=== PATIENT | male | born 1980 | race African-American/Black ===

== ENCOUNTER 2021-06-10 14:44 | Emergency (ER) | payer SELFPAY ==
[2021-06-10 14:48] VITALS: BP 132/90; PULSE 114; RESP 18; TEMP 36.1; O2SAT 98; BMI 23.3
--- NOTE | 2021-06-10 15:56 | ED_ITS ---
HPI - Skin/Abscess/Foreign Bdy General Chief complaint: Skin/Abscess/Foreign Body Stated complaint: dental pain Time Seen by Provider: 06/10/21 15:34 Source: patient Mode of arrival: ambulatory Limitations: no limitations History of Present Illness HPI narrative: 41-year-old male to the emergency department with right-side lower gum pain X2 days. He states that he thinks he has an abscessed. He states he recently broke a tooth and he feels like this is what is causing the infection. He reports constant 10/10 pain. He states he has not seen a dentist since he was a child. He denies fevers, chills, shortness of breath, chest pain, abdominal pain, trouble swallowing, sore throat. MD complaint: abscess/boil (Right lower gum) Onset (ago): day(s) (2) Severity: severe Severity scale (1-10): 10 Quality: sharp Pain Consistency: constant Relieving factors: none Exacerbating factors: none Context: none Associated symptoms: denies other symptoms Treatments prior to arrival: none Related Data Previous Rx's Medication Instructions Recorded hydrocodone 5 mg-acetaminophen 325 1 tab PO Q8H PRN #14 tab 06/10/21 mg tablet penicillin V potassium 500 mg 500 mg PO Q12H 10 Days #20 tab 06/10/21 tablet Allergies Allergy/AdvReac Type Severity Reaction Status Date / Time oxycodone AdvReac Intermediate skin rash Unverified 06/10/21 15:58 Review of Systems Review of Systems: Constitutional : No Fever, No Chills, No changes in PO intake, No difficulty speaking, no recent dental procedure, no heat or cold intolerance while eating, no recent face trauma, ENT/Mouth : + dental pain/gum swelling, No swallowing difficulty, no change in voice, No jaw pain, No facial swelling, no drooling, no trismus, no bleeding, no throat swelling, no lacerations, no tongue swelling Eyes: No Eye Pain, No periorbital Swelling Cardiovascular : No Chest Pain, No SOB Respiratory : No Cough, No Sputum, No Wheezing, No Smoke Exposure, No Dyspnea Gastrointestinal : No Nausea, No Vomiting, No Diarrhea Genitourinary : No Dysuria Musculoskeletal : No Myalgias Skin : No rash, no facial swelling or redness, Neuro : No Weakness, No Numbness, No Headache Yes all other systems are reviewed and are negative [facility] Past Medical History Attestation statement: The following information was validated with the patient. Source: old records reviewed and nursing notes reviewed Social History Social History Advance Directives: No Advance Directives Information Provided: Yes Physical Exam Vital Signs: Vital Signs: Last Vital Signs Temp 97 F 06/10/21 14:48 Pulse 114 H 06/10/21 14:48 Resp 18 06/10/21 14:48 BP 132/90 H 06/10/21 14:48 Pulse Ox 98 06/10/21 14:48 Body Mass Index 23.3 vital signs have been reviewed as normal and appeared to be correct. Blood pressure hypertensive at 132/90 Heart rate tachycardic at 114 Respiration rate normal. Temperature normal. Oxygen saturation normal. Appearance: Alert. Oriented X3. No acute distress. Head: Normal external exam. Normocephalic. Eyes: PERRLA. EOMI. Conjunctiva and sclera normal. Eyelids normal. ENT: Pharynx normal. Uvula midline. Moist mucous membranes. No trismus noted. No drooling noted. No muffled voice noted. + flutuance abscess small 2cmX 2cm area to right lower gum., + poor dentition noted throughout and multiple dental old fractures Neck: Normal inspection. Neck supple. FROM. No adenopathy. No meningeal signs. CVS: Normal heart rate and rhythm. Heart sound normal. No murmurs noted. Pulses normal throughout. Respiratory: No respiratory distress. Painless inspiration. Breath sounds normal. No wheezes/rales/rhonchi noted. Abdomen: Soft and nontender. Nondistended. No guarding. No rigidity. Bowel sounds normal in all 4 quadrants. Back: No CVA tenderness. Full range of motion noted. Skin: Skin warm and dry. Normal skin color. Normal skin turgor. No rashes/lesions/lacerations noted. Extremities: Extremities exhibit normal range of motion. Extremities nontender. Neuro: Oriented X 3. No motor deficit. No sensory deficit. Reflexes normal. Normal steady gait. Course Course Course Narrative: 41-year-old male, no known medical history presents to the emergency department with right lower gum pain x2 days. He states that he broke a choose a while ago, and he feels like that tooth is getting infected and caus ing an infection. He states he has not seen a dentist since he was a child. Upon physical examination there is a small 2 x 2 abscess noted to the right lower gum. There is poor dentition noted throughout. Patient is controlling secretions well. Patient is speaking in full sentences. An 18 gauge needle was used to needle aspirate, and 3 different locations. Pus was expressed from the area. At this time there is no need for laboratory studies. Patient appears nontoxic, he is afebrile and vital signs are stable. He is slightly tachycardic, however he states he is very nervous. Patient is safe for discharge home. He has been given a list of dentists in the area, he should follow up with a dentist, or his primary care provider. He will be discharged home on antibiotics and medication for pain. MDM - Skin/Abscess/Foreign Bdy Medical Records Attestation: I reviewed the patient's medical records. Procedures Abscess I/D Site: oral (dental right lower) Technique: needle aspiration Amount of fluid expressed (mL): 5 Sent for culture/gram staining?: No Irrigation: Yes Packing used?: none Complications: other (no complications) Discharge Plan Discharge Clinical Impression: Abscess, Pain due to dental caries Patient Disposition: Home, Self-Care Instructions: Abscess (ED) Additional Instructions: Follow-up with a dentist, we have given you last. Follow-up with your primary care provider Return to the emergency department with new or worsening symptoms, or if he develops severe pain, swelling, fevers or chills. Prescriptions: New penicillin V potassium 500 mg tablet 500 mg PO Q12H 10 Days Qty: 20 RF: 0 hydrocodone-acetaminophen 5-325 mg tablet 1 tab PO Q8H PRN (Reason: pain) Qty: 14 RF: 0 Referrals: Physician,None [Primary Care Provider] - 2 days (your pcp/dentist) Interventions: ED Discharge Assessment Last Done: 06/10/21 16:44 Discharge Date/Time: 06/10/21 16:46 Print Language: Luxem[place]ish
[2021-06-10] MEDS: HYDROcodone Bit/Acetam 5/325 TABLET 1 TAB PO (16:38)
--- NOTE | 2021-06-10 16:41 | PC.NURSE ---
PT EVALUATED BY DEMETRI SCHMITT. PT AWAKE, ALERT AND ORIENTED X 3. SKIN WARM AND DRY. RESP UNLABORED. DENIES N/V. C/O 10/10 DENTAL PAIN. AIRWAY PATENT. MANAGING SECRETIONS. SPEAKING IN FULL CLEAR SENTENCES. PA DRAINED ABSCESS - NEEDLE ASPIRATION. THICK YELLOW/GREEN PUS NOTED. PT TOLERATED PROCEDURE WITHOUT INCIDENT. PT MEDICATED FOR PAIN. PLAN IS FOR F/U WITH DENTIST. PT AWARE AND AGREEABLE TO PLAN.
== END 2021-06-10 16:46 | disposition home or self-care (01) ==
PROVIDERS: Emergency Provider Emergency Medicine
DX: K04.7 Periapical abscess without sinus (principal); K02.9 Dental caries, unspecified
CPT/HCPCS: 10160; 99283

== ENCOUNTER 2021-06-19 11:36 | Emergency (ER) | payer SELFPAY ==
[2021-06-19 11:46] VITALS: BP 167/99; PULSE 103; RESP 18; TEMP 36.9; O2SAT 100; BMI 23.3
--- NOTE | 2021-06-19 13:20 | ED.DENTAL ---
HPI - Dental/Oral General Chief complaint: Dental/Oral Stated complaint: Abscess got bigger Time Seen by Provider: 06/19/21 12:40 Source: patient Mode of arrival: ambulatory Limitations: no limitations History of Present Illness HPI Narrative: 41-year-old male presenting to the ER with right lower dental pain and swelling for the last 2 weeks. He was here on June 10 and had a dental abscess drained. He was prescribed pain medication and penicillin. He never followed up with a dentist as he is from [place]. He reports he felt like the infection went from the back tooth into the front molar. He has had increased swelling and pain over the last 2-3 days. He noticed a large protrusion of his gums. He reports some body aches and joint pains as well as overall not feeling well. He denies any fever or chills. MD Complaint: tooth pain Teeth map: 1. Pain with significant associated gingival swelling and fluctuance. Onset (ago): week(s) (2) Duration: constant Severity: severe Severity scale (1-10): >10 Relieving factors: prescription analgesics Exacerbating factors: chewing, cold and heat Context: other (Recently drained abscess) Associated symptoms: gum swelling Treatment prior to arrival: topical analgesic and oral analgesic Related Data Previous Rx's Medication Instructions Recorded hydrocodone 5 mg-acetaminophen 325 1 tab PO Q8H PRN #14 tab 06/10/21 mg tablet penicillin V potassium 500 mg 500 mg PO Q12H 10 Days #20 tab 06/10/21 tablet chlorhexidine gluconate 0.12 % 15 ml BUCCAL BID #118 ml 06/19/21 mouthwash clindamycin HCl 150 mg capsule 450 mg PO TID 10 Days #90 cap 06/19/21 hydrocodone 5 mg-acetaminophen 325 1 tab PO Q4H PRN #14 tab 06/19/21 mg tablet ibuprofen 800 mg tablet 800 mg PO Q8H PRN #20 tab 06/19/21 Allergies Allergy/AdvReac Type Severity Reaction Status Date / Time oxycodone AdvReac Intermediate skin rash Verified 06/19/21 11:46 Review of Systems Constitutional: Constitutional: Reports body ache(s), Denies chills, Denies fever(s) and Reports headache(s) Eyes: Eyes: Reports no additional eye complaints ENT: Reports dental pain, Reports facial pain, Reports headache(s), Reports mouth pain, Denies neck pain, Denies sore throat, Denies throat swelling and Denies tongue swelling Cardiovascular: Cardiovascular: Denies chest pain and Denies dyspnea Respiratory: Respiratory: Denies cough and Denies dyspnea Gastrointestinal: Gastrointestinal: Denies nausea and Denies vomiting Musculoskeletal: Musculoskeletal: Reports myalgias and Denies neck pain Neurologic: Reports headache(s) Hematologic/Lymphatic: Hematologic/Lymphatic: Denies easy bleeding Allergic/Immunologic: Allergic/Immunologic: Denies throat swelling and Denies tongue swelling PMFSH Past Medical History Medical History (Updated 06/19/21 @ 13:20 by DEMETRI Rucker) Abscess Hypertension Social History Social History Advance Directives: No Physical Exam Vital Signs: Vital Signs: Last Vital Signs Temp 98.0 F 06/19/21 13:37 Pulse 95 06/19/21 13:37 Resp 18 06/19/21 13:37 BP 150/109 H 06/19/21 13:37 Pulse Ox 100 06/19/21 13:37 Body Mass Index 23.3 Const: General: cooperative, healthy appearing, comfortable and no acute distress Nutritional Appearance: average body habitus Orientation/consciousness: patient oriented x3 Limitations: no limitations HENMT: Head: Yes normal to inspection Ears: hearing grossly normal bilaterally and external ears normal General nose exam: Normal external nose present and Normal nares present Face and sinus: Yes other (Right lower anterior mandible with some mild swelling.) Mouth: Normal oral and palatal mucosa present, lip normal, oropharynx normal and moist mucous membranes Teeth and gingiva: abnormal tooth and associated gingiva lower right first molar tender, with associated gingival edema and with associated gingival fluctuance and gingiva abnormal edematous, with purulent discharge, diffusely erythematous and tender Throat: Yes posterior oropharynx normal, Yes tonsils normal and Yes uvula midline Eyes: General: appearance normal, both eyes and all related structures Neck: Neck: Yes normal visual inspection, No anterior neck swelling and Yes lymphadenopathy (Right anterior cervical chain) Chest: Chest palpation & inspection: normal inspection of the chest Resp: Effort & Inspection: normal respiratory effort and able to speak in complete sentences Skin: General skin exam: no rashes or lesions noted Neuro: General: patient oriented x3 Extrem: General: Yes normal to inspection and Yes full ROM Psych: Appearance: grossly normal and well kempt Mental Status: mental status grossly normal Course Course Course Narrative: 41 y/o male presenting with right lower dental abscess. Large area of fluctuance that is amenable to drainage. Topical lidocaine applied. Will drain and plan to broaden abx. Reevaluation(s) Reevaluation #1: Dental abscess drained with large amount of purulent material expressed. Patient tolerated the procedure well. Gauze placed in the mouth and oral care discussed. Will start him on clindamycin for 10 days. Will offer continued medications for pain control and add Peridex mouthwash. He was provided a list of emergency dentist in the area. Encouraged follow-up with [facility]. Patient expressed understanding and is stable for discharge home. Procedures Abscess I/D Site: oral Side (if applicable): right Local Anesthetic: other anesthetic (Topical lidocaine) Technique: incised with blade Sent for culture/gram staining?: No Irrigation: Yes Packing used?: none Complications: bleeding Discharge Plan Discharge Clinical Impression: Dental abscess Patient Disposition: Home, Self-Care Instructions: Dental Abscess (ED), Abscess Incision and Drainage (DC) Additional Instructions: Take the prescribed antibiotic as directed for full 10 days. Use a prescribed mouthwash 2 times a day swish and spit. Take the prescribed hydrocodone medication as needed for severe pain, do not drive after taking this medication. Take the prescribed ibuprofen every 8 hours for the next few days to help with swelling and pain. Take it with food to decrease stomach upset. Follow-up with 1 of the dentist on the emergency dental list provided to you in the ER. If you develop new or worsening symptoms call 911 or come back to the ER for further evaluation. Prescriptions: New hydrocodone-acetaminophen 5-325 mg tablet 1 tab PO Q4H PRN (Reason: pain) Qty: 14 RF: 0 ibuprofen 800 mg tablet 800 mg PO Q8H PRN (Reason: pain) Qty: 20 RF: 0 clindamycin HCl 150 mg capsule 450 mg PO TID 10 Days Qty: 90 RF: 0 chlorhexidine gluconate 0.12 % mouthwash 15 ml buccal BID Qty: 118 RF: 0 No Action penicillin V potassium 500 mg tablet 500 mg PO Q12H 10 Days Qty: 20 RF: 0 hydrocodone-acetaminophen 5-325 mg tablet 1 tab PO Q8H PRN (Reason: pain) Qty: 14 RF: 0
[2021-06-19 13:37] VITALS: BP 150/109; PULSE 95; RESP 18; TEMP 36.7; O2SAT 100
== END 2021-06-19 14:31 | disposition home or self-care (01) ==
PROVIDERS: Emergency Provider Emergency Medicine
DX: K04.7 Periapical abscess without sinus (principal); Z79.899 Other long term (current) drug therapy
CPT/HCPCS: 41800; 99284